=== PATIENT | male | born 1955 | race Caucasian/White ===

== ENCOUNTER → 2016-05-21 | Outpatient (CLI) | payer MEDICAID ==
[~2016-05-21] MED LIST: GABA300C10 PO; LISI-167 PO; METH750T87 PO; MORP15TA PO; MORP60CA17 PO; MORP60TA PO; OXYC10TA32 PO; OXYC10TA6 PO
== END | disposition home or self-care (01) ==
LOC: CFH 08:48
PROVIDERS: ATTEND Neurological Surgery
DX: M54.12 Radiculopathy, cervical region (principal); M43.22 Fusion of spine, cervical region; M54.2 Cervicalgia; M48.02 Spinal stenosis, cervical region
CPT/HCPCS: 72050